=== PATIENT | female | born 2000 | race Hispanic/Latino ===

== ENCOUNTER 2024-05-18 19:31 | Emergency (ER) | payer OTHER ==
[2024-05-18] MEDS ORDERED: Gentamicin Ophth Soln 0.3% 5 ml Bottle ONE (19:56)
== END 2024-05-18 20:00 | disposition home or self-care (01) ==
LOC: NAV ERS 19:31
DX: H00.015 Hordeolum externum left lower eyelid (principal); H10.9 Unspecified conjunctivitis; R03.0 Elevated blood-pressure reading, without diagnosis of hypertension; E11.9 Type 2 diabetes mellitus without complications; Z87.891 Personal history of nicotine dependence
CPT/HCPCS: 87070; 87077; 87186; 87205; 99283